=== PATIENT | female | born 1995 | race Caucasian/White ===

== ENCOUNTER 2021-08-11 16:50 | Emergency (ER) | payer OTHER ==
[2021-08-11 17:01] VITALS: BMI 28.3
[2021-08-11] MEDS ORDERED: LACTATED RINGERS SOLUTION 1,000 ML IV STA ×2 (18:14→18:19)
[2021-08-11] MEDS ORDERED: ACETAMINOPHEN 1000 MG/100 ML VIAL (NON FORMULARY) IVPB ONE (18:31)
[2021-08-11] MEDS ORDERED: ACETAMINOPHEN INJECTION 100 ML IVPB ONE (18:57)
[2021-08-11 20:00] LABS: INR 0.98 (0.83-1.09); PROTHROMBIN TIME (PATIENT) 11.9 SEC (9.7-13.0)
[2021-08-11 20:02] LABS: ACTIVATED PTT 29.2 SECONDS (25.2-36.5)
[2021-08-11 20:03] LABS: BASO % 0.1 % (0-2.0); EOS % 0.1 % (0-4.5); HEMATOCRIT 29.8 % (32.4-45.2); HEMOGLOBIN 10.4 GM/dL (10.7-15.3); LYMPH % 10.2 % (8-40); MCH 30.7 pg (25.7-33.7); MEAN CELL VOLUME 87.6 fl (80-96); MEAN PLT VOLUME 11.6 fl (7.5-11.1); MONO % 10.9 % (3.8-10.2); NEUT % 78.7 % (42.8-82.8); PLATELET COUNT 74 10^3/uL (134-434); RDW 12.9 % (11.6-15.6); WHITE BLOOD COUNT 6.2 K/mm3 (4.0-10.0)
[2021-08-11 20:06] LABS: CHLORIDE 104 mmol/L (98-107); SODIUM 137 mmol/L (136-145)
[2021-08-11 20:09] LABS: ALBUMIN 2.6 g/dl (3.4-5.0); ANION GAP 9 MMOL/L (8-16); CALCIUM 8.2 mg/dL (8.5-10.1); CO2 24 mmol/L (21-32); GLUCOSE,RANDOM 100 mg/dL (74-106)
[2021-08-11 20:11] LABS: SGOT/AST 25 U/L (15-37); SGPT/ALT 16 U/L (13-61)
[2021-08-11 20:12] LABS: CREATININE 0.5 mg/dL (0.55-1.3)
[2021-08-11 20:13] LABS: BILIRUBIN,TOTAL 0.2 mg/dL (0.2-1); TOT PROT 6.6 g/dl (6.4-8.2)
[2021-08-11 20:14] LABS: ALK PHOS 149 U/L (45-117)
[2021-08-11 20:18] LABS: N-TERMINAL BNP 118.5 pg/ml (5-125)
[2021-08-11 20:21] LABS: BLOOD UREA NITROGEN 2.2 mg/dL (7-18)
[2021-08-11] MEDS ORDERED: POTASSIUM CHLORIDE ORAL LIQUID 20 MEQ/15 ML PO ONE (20:33)
[2021-08-11] MEDS ORDERED: POTASSIUM CHLORIDE ORAL LIQUID 20 MEQ/15 ML ONE (20:45)
[2021-08-12 00:57] VITALS: BP 115/64; PULSE 103; TEMP 97.9
== END 2021-08-12 00:23 | disposition home or self-care (01) ==
LOC: JER 16:50
PROC: 3E0333Z Introduction of Anti-inflammatory into Peripheral Vein, Percutaneous Approach (ICD-10-PCS; principal; 2021-08-11)
PROC: 3E0337Z Introduction of Electrolytic and Water Balance Substance into Peripheral Vein, Percutaneous Approach (ICD-10-PCS; 2021-08-11)
PROC: 3E0337Z Introduction of Electrolytic and Water Balance Substance into Peripheral Vein, Percutaneous Approach (ICD-10-PCS; 2021-08-11)
DX: O98.513 Other viral diseases complicating pregnancy, third trimester (principal); U07.1 COVID-19; Z3A.31 31 weeks gestation of pregnancy
CPT/HCPCS: 36415; 80053; 82550; 83605; 83880; 84484; 85025; 85610; 85730; 87807; 93005; 93010; 93970-TC; 99285-25; C9803; J0131; U0003; U0005